=== PATIENT | female | born 1940 | race Caucasian/White ===

== ENCOUNTER 2017-08-02 09:59 | Emergency (ER) | payer MEDICARE ==
[~2017-08-02] VITALS: Ht 170.2 cm; Wt 95.3 kg
[2017-08-02 10:05] VITALS: BP_SYST 164
[2017-08-02] MEDS ORDERED: cloNIDine HCL 0.1 MG TABLET PO ONE (10:15)
[2017-08-02] MEDS ORDERED: DIPH-TET Vacc 0.5 ML VIAL I.M. ONE (10:15)
[2017-08-02 10:33] LABS: BASOPHILS % (AUTO) 0.4 % (0.0-2.0); EOSINOPHILS # (AUTO) 0.1 K/uL (0.0-0.4); EOSINOPHILS % (AUTO) 1.3 % (0.0-4.0); HEMATOCRIT 43.5 % (36-48); HEMOGLOBIN 14.2 g/dL (12.0-16.0); LYMPHOCYTES # (AUTO) 2.3 K/uL (1.0-5.5); LYMPHOCYTES % (AUTO) 33.8 % (20.5-51.5); MEAN CORPUSCULAR HEMOGLOBIN 31 pg (27-31); MEAN CORPUSCULAR HGB CONC 33 % (32-36); MEAN CORPUSCULAR VOLUME 93 fL (79.0-98.0); MONOCYTES # (AUTO) 0.4 K/uL (0.0-1.0); MONOCYTES % (AUTO) 6.7 % (1.7-9.3); NEUTROPHILS # (AUTO) 3.9 K/uL (1.8-7.7); NEUTROPHILS % (AUTO) 57.8 % (40.0-70.0); PLATELET COUNT (AUTO) 214 K/uL (130-430); RED BLOOD CELL COUNT(AUTO) 4.67 MIL/uL (4.2-6.2); RED CELL DISTRIBUTION WIDTH 12.1 % (9.0-15.0); WHITE BLOOD COUNT (AUTO) 6.7 K/uL (4.8-10.8)
[2017-08-02 10:44] LABS: ANION GAP 8 (5-15); CALCIUM 9.7 mg/dL (8.4-11.0); CHLORIDE 102 mmol/L (98-107); CREATININE 0.71 mg/dL (0.55-1.30); GLUCOSE 165 mg/dL (70-99); INR 1.1 (0.8-1.2); POTASSIUM 3.7 mmol/L (3.5-5.1); PROTHROMBIN TIME 10.7 SECS (9.5-12.5); SODIUM SERUM 138 mmol/L (136-145); UREA NITROGEN, BLOOD 15 mg/dL (8-21)
[2017-08-02 11:09] LABS: ALANINE AMINOTRANSFERASE 115 U/L (12-78); ALBUMIN 4.2 g/dL (3.4-4.8); ALCOHOL, BLOOD < 3 mg/dL (<10); ASPARTATE AMINOTRANSFERASE 104 U/L (10-37); FREE T4 (FREE THYROXINE) 0.7 ng/dL (0.6-1.6); TOTAL BILIRUBIN 1.1 mg/dL (0.0-1.0)
[2017-08-02 12:40] VITALS: BP_SYST 140
== END 2017-08-02 12:40 | disposition home or self-care (01) ==
LOC: SED 09:59
DX: S02.2XXA Fracture of nasal bones, initial encounter for closed fracture (principal); S01.511A Laceration without foreign body of lip, initial encounter; M25.552 Pain in left hip; Z88.0 Allergy status to penicillin; Z88.2 Allergy status to sulfonamides; Z88.5 Allergy status to narcotic agent; Z88.1 Allergy status to other antibiotic agents; W01.0XXA Fall on same level from slipping, tripping and stumbling without subsequent striking against object, initial encounter; Y93.89 Activity, other specified; Y92.89 Other specified places as the place of occurrence of the external cause; Y99.8 Other external cause status
CPT/HCPCS: 36415; 70450; 70486; 71010; 73502; 74000; 80053; 83880; 84439; 84484; 85025; 85610; 90471; 90714; 93005; 99285; G0482

== ENCOUNTER 2018-12-12 08:35 | Emergency (ER) | payer MEDICARE ==
[~2018-12-12] VITALS: Ht 162.6 cm; Wt 86.2 kg
[2018-12-12 08:35] VITALS: BP_SYST 145
[2018-12-12] MEDS ORDERED: LOSA50TA3 PO (09:14)
[2018-12-12] MEDS ORDERED: LIP10 PO (09:18)
[2018-12-12] MEDS ORDERED: PANT20TA2 PO (09:18)
[2018-12-12] MEDS ORDERED: DILT30TA36 PO (09:18)
[2018-12-12] MEDS ORDERED: DABI150C PO (09:18)
[2018-12-12 09:30] LABS: BASOPHILS % (AUTO) 0.4 % (0.0-2.0); EOSINOPHILS # (AUTO) 0.1 K/uL (0.0-0.4); EOSINOPHILS % (AUTO) 1.2 % (0.0-4.0); HEMATOCRIT 41.7 % (36-48); LYMPHOCYTES # (AUTO) 1.9 K/uL (1.0-5.5); LYMPHOCYTES % (AUTO) 32.3 % (20.5-51.5); MEAN CORPUSCULAR HEMOGLOBIN 32 pg (27-31); MEAN CORPUSCULAR HGB CONC 34 % (32-36); MEAN CORPUSCULAR VOLUME 94 fL (79.0-98.0); MONOCYTES # (AUTO) 0.4 K/uL (0.0-1.0); MONOCYTES % (AUTO) 7.3 % (1.7-9.3); NEUTROPHILS # (AUTO) 3.4 K/uL (1.8-7.7); NEUTROPHILS % (AUTO) 58.8 % (40.0-70.0); PLATELET COUNT (AUTO) 205 K/uL (130-430); RED BLOOD CELL COUNT(AUTO) 4.44 MIL/uL (4.2-6.2); RED CELL DISTRIBUTION WIDTH 13.2 % (9.0-15.0); WHITE BLOOD COUNT (AUTO) 5.7 K/uL (4.8-10.8)
[2018-12-12 09:34] LABS: ALANINE AMINOTRANSFERASE 88 U/L (12-78); ALBUMIN 3.6 g/dL (3.4-4.8); ANION GAP 6 (5-15); ASPARTATE AMINOTRANSFERASE 10 U/L (10-37); CALCIUM 9.3 mg/dL (8.4-11.0); CHLORIDE 95 mmol/L (98-107); CREATININE 0.52 mg/dL (0.55-1.30); GLUCOSE 148 mg/dL (70-99); POTASSIUM 3.7 mmol/L (3.5-5.1); SODIUM SERUM 129 mmol/L (136-145); TOTAL BILIRUBIN 0.9 mg/dL (0.0-1.0); UREA NITROGEN, BLOOD 12 mg/dL (8-21)
[2018-12-12 09:40] LABS: INR 1.2 (0.8-1.2); PROTHROMBIN TIME 12.1 SECS (9.5-12.5)
[2018-12-12 10:26] VITALS: BP_SYST 145
== END 2018-12-12 10:26 | disposition home or self-care (01) ==
LOC: SED 08:35
DX: R00.2 Palpitations (principal); I48.91 Unspecified atrial fibrillation; R07.89 Other chest pain; Z88.0 Allergy status to penicillin; Z88.2 Allergy status to sulfonamides; Z88.1 Allergy status to other antibiotic agents; Z88.5 Allergy status to narcotic agent; Z79.899 Other long term (current) drug therapy
CPT/HCPCS: 36415; 71045; 80053; 82550-TC; 83880; 84484; 85025; 85610-TC; 85730-TC; 99284

== ENCOUNTER 2023-03-29 00:05 | Inpatient (IN) | payer MEDICARE ==
[2023-03-29] VITALS (26 sets, daily range): BP systolic 103–164; PULSE 63–85; RESP 13–24; TEMP 97.4–98.2; O2SAT 93–100
[~2023-03-29] VITALS: Ht 167.6 cm; Wt 98.4 kg
[~2023-03-29 00:05] MED LIST: DABI150C PO; DILT30TA35 PO; LIP10 PO; LOSA50TA3 PO; PANT20TA2 PO
[2023-03-29] MEDS ORDERED: PANTOPRAZOLE SODIUM 40 MG/VIAL (PROTONIX) IVP ONE (01:00)
[2023-03-29] MEDS ORDERED: ONDANSETRON HCL 4 MG/2 ML VIAL IVP ONE (01:00)
[2023-03-29] MEDS ORDERED: NACL 0.9% 1,000 ML IV ONE ×2 (01:00→03:00)
[2023-03-29 01:24] LABS: BILIRUBIN,URINE NEGATIVE (NEGATIVE); BLOOD, URINE NEGATIVE (NEGATIVE); CLARITY/URINE CLEAR (CLEAR); COLOR,URINE YELLOW (YELLOW); GLUCOSE,URINE NEGATIVE (NEGATIVE); KETONES,URINE TRACE (NEGATIVE); LEUKOCYTE ESTERASE ,URINE 1+ (NEGATIVE); NITRITE, URINE NEGATIVE (NEGATIVE); PROTEIN URINE TRACE (NEGATIVE); UROBILINOGEN,URINE 0.2 (0.2-1.0)
[2023-03-29 01:27] LABS: BASOPHILS % (AUTO) 0.4 % (0.0-2.0); EOSINOPHILS % (AUTO) 0.4 % (0.0-4.0); HEMATOCRIT 25.6 % (36-48); HEMOGLOBIN 8.4 g/dL (12.0-16.0); LYMPHOCYTES # (AUTO) 2.4 K/uL (1.0-5.5); LYMPHOCYTES % (AUTO) 24.8 % (20.5-51.5); MEAN CORPUSCULAR HEMOGLOBIN 29 pg (27-31); MEAN CORPUSCULAR HGB CONC 33 % (32-36); MEAN CORPUSCULAR VOLUME 89 fL (79.0-98.0); MONOCYTES # (AUTO) 0.8 K/uL (0.0-1.0); MONOCYTES % (AUTO) 7.9 % (1.7-9.3); NEUTROPHILS # (AUTO) 6.6 K/uL (1.8-7.7); NEUTROPHILS % (AUTO) 66.5 % (40.0-70.0); PLATELET COUNT (AUTO) 197 K/uL (130-430); RED BLOOD CELL COUNT(AUTO) 2.89 MIL/uL (4.2-6.2); RED CELL DISTRIBUTION WIDTH 15.5 % (9.0-15.0); WHITE BLOOD COUNT (AUTO) 9.9 K/uL (4.8-10.8)
[2023-03-29 01:46] LABS: BACTERIA,URINE RARE /HPF (None Seen)
[2023-03-29 01:59] LABS: ANION GAP 12 (5-15); CALCIUM 8.9 mg/dL (8.4-11.0); CARBON DIOXIDE 21 mmol/L (23-29); CHLORIDE 104 mmol/L (98-107); CREATININE 1.18 mg/dL (0.55-1.30); GLUCOSE 178 mg/dL (74-106); POTASSIUM 4.4 mmol/L (3.5-5.1); SODIUM SERUM 137 mmol/L (136-145); UREA NITROGEN, BLOOD 43 mg/dL (8-21)
[2023-03-29 02:05] LABS: ALANINE AMINOTRANSFERASE 45 U/L (12-78); ASPARTATE AMINOTRANSFERASE 71 U/L (10-37); LIPASE 241 U/L (73-393); TOTAL BILIRUBIN 0.9 mg/dL (0.0-1.0); TOTAL PROTEIN, SERUM 6.7 g/dL (6.4-8.3)
[2023-03-29] MEDS ORDERED: SPIR25TA PO (02:30)
[2023-03-29] MEDS ORDERED: DABI150C PO (02:30)
[2023-03-29] MEDS ORDERED: AMIO200T66 PO (02:30)
[2023-03-29] MEDS ORDERED: OMEP20CA15 PO (02:30)
[2023-03-29] MEDS ORDERED: ONDANSETRON HCL 4 MG/2 ML VIAL IVP PRN ×2 (03:15→10:45)
[2023-03-29] MEDS: D5/0.45 NS 1,000 ML IV SCH ×3 (04:02→22:25)
[2023-03-29 07:12] LABS: INR 1.3 (0.8-1.2); PROTHROMBIN TIME 13.6 SECS (9.5-12.5)
[2023-03-29] MEDS ORDERED: PANTOPRAZOLE SODIUM 40 MG/VIAL (PROTONIX) IVP SCH (09:00)
[2023-03-29] MEDS ORDERED: LORazepam 2 MG/ML VIAL IVP PRN (10:45)
[2023-03-29] MEDS ORDERED: MIDAZOLAM HCL 5 MG/5 ML VIAL ONE (14:30)
[2023-03-29] MEDS ORDERED: SIMETHICONE 40 MG/0.6 ML ML ONE (14:30)
[2023-03-29] MEDS ORDERED: fentaNYL CITRATE/PF 100 MCG/2 ML AMP ONE (14:30)
[2023-03-29] MEDS: PANTOPRAZOLE SODIUM 40 MG in NS 50 ML IV SCH ×2 (16:03→20:18)
[2023-03-29 17:09] LABS: BILIRUBIN,URINE NEGATIVE (NEGATIVE); BLOOD, URINE NEGATIVE (NEGATIVE); CLARITY/URINE CLEAR (CLEAR); COLOR,URINE YELLOW (YELLOW); GLUCOSE,URINE NEGATIVE (NEGATIVE); KETONES,URINE NEGATIVE (NEGATIVE); LEUKOCYTE ESTERASE ,URINE 1+ (NEGATIVE); NITRITE, URINE NEGATIVE (NEGATIVE); PROTEIN URINE NEGATIVE (NEGATIVE); UROBILINOGEN,URINE 0.2 (0.2-1.0)
[2023-03-29 17:25] LABS: BACTERIA,URINE FEW /HPF (None Seen); MUCUS,URINE None Seen /LPF (None Seen); RBC,URINE 0-3 /HPF (0-3)
[2023-03-29] MEDS: OCTREOTIDE ACETATE 1,250 MCG in NS 250 ML IV SCH (18:20)
[2023-03-30] VITALS (15 sets, daily range): BP systolic 92–137; PULSE 61–75; RESP 12–18; TEMP 97.7–98.9; O2SAT 92–100
[2023-03-30] MEDS: PANTOPRAZOLE SODIUM 40 MG in NS 50 ML IV SCH ×5 (02:38→22:00)
[2023-03-30 05:13] LABS: ALANINE AMINOTRANSFERASE 89 U/L (12-78); ALBUMIN 2.7 g/dL (3.4-4.8); ANION GAP 6 (5-15); ASPARTATE AMINOTRANSFERASE 159 U/L (10-37); CALCIUM 7.9 mg/dL (8.4-11.0); CARBON DIOXIDE 26 mmol/L (23-29); CHLORIDE 104 mmol/L (98-107); CREATININE 0.78 mg/dL (0.55-1.30); GLUCOSE 125 mg/dL (74-106); POTASSIUM 4.3 mmol/L (3.5-5.1); SODIUM SERUM 136 mmol/L (136-145); TOTAL BILIRUBIN 1.2 mg/dL (0.0-1.0); TOTAL PROTEIN, SERUM 6.1 g/dL (6.4-8.3); UREA NITROGEN, BLOOD 16 mg/dL (8-21)
[2023-03-30 05:21] LABS: TOTAL IRON BIND. CAPACITY 283 ug/dL (250-450)
[2023-03-30 05:26] LABS: BASOPHILS % (AUTO) 0.5 % (0.0-2.0); EOSINOPHILS # (AUTO) 0.1 K/uL (0.0-0.4); EOSINOPHILS % (AUTO) 1.3 % (0.0-4.0); LYMPHOCYTES % (AUTO) 35.1 % (20.5-51.5); MEAN CORPUSCULAR HEMOGLOBIN 29 pg (27-31); MEAN CORPUSCULAR HGB CONC 32 % (32-36); MEAN CORPUSCULAR VOLUME 90 fL (79.0-98.0); MONOCYTES # (AUTO) 0.7 K/uL (0.0-1.0); MONOCYTES % (AUTO) 8.8 % (1.7-9.3); NEUTROPHILS # (AUTO) 4.6 K/uL (1.8-7.7); NEUTROPHILS % (AUTO) 54.3 % (40.0-70.0); PLATELET COUNT (AUTO) 149 K/uL (130-430); WHITE BLOOD COUNT (AUTO) 8.4 K/uL (4.8-10.8)
[2023-03-30 05:34] LABS: HEMATOCRIT 21.6 % (36-48)
[2023-03-30] MEDS ORDERED: MORPHINE 2 MG/ML INJ. SYRINGE IVP PRN (07:00)
[2023-03-30] MEDS: D5/0.45 NS 1,000 ML IV SCH ×2 (08:11→20:48)
[2023-03-30] MEDS: ACETAMINOPHEN 500 MG TABLET PO PRN ×2 (10:42→18:49)
[2023-03-30] MEDS: OCTREOTIDE ACETATE 1,250 MCG in NS 250 ML IV SCH (20:48)
[2023-03-30] MEDS: CIPROFLOXACIN LACT 200 MG/D5W 100 ML IV SCH (22:19)
[2023-03-31 00:10] VITALS: BP_SYST 116; PULSE 65; RESP 20; TEMP 97.7; O2SAT 95
[2023-03-31 01:42] VITALS: O2SAT 97
[2023-03-31] MEDS: PANTOPRAZOLE SODIUM 40 MG in NS 50 ML IV SCH ×2 (01:56→06:58)
[2023-03-31 05:51] LABS: BASOPHILS % (AUTO) 0.6 % (0.0-2.0); EOSINOPHILS # (AUTO) 0.1 K/uL (0.0-0.4); EOSINOPHILS % (AUTO) 1.5 % (0.0-4.0); HEMATOCRIT 24.2 % (36-48); LYMPHOCYTES # (AUTO) 1.8 K/uL (1.0-5.5); LYMPHOCYTES % (AUTO) 23.7 % (20.5-51.5); MEAN CORPUSCULAR HEMOGLOBIN 30 pg (27-31); MEAN CORPUSCULAR HGB CONC 33 % (32-36); MEAN CORPUSCULAR VOLUME 91 fL (79.0-98.0); MONOCYTES # (AUTO) 0.7 K/uL (0.0-1.0); MONOCYTES % (AUTO) 9.5 % (1.7-9.3); NEUTROPHILS # (AUTO) 4.8 K/uL (1.8-7.7); NEUTROPHILS % (AUTO) 64.7 % (40.0-70.0); PLATELET COUNT (AUTO) 121 K/uL (130-430); RED BLOOD CELL COUNT(AUTO) 2.67 MIL/uL (4.2-6.2); RED CELL DISTRIBUTION WIDTH 15.3 % (9.0-15.0); WHITE BLOOD COUNT (AUTO) 7.4 K/uL (4.8-10.8)
[2023-03-31 06:05] LABS: ERYTHROCYTE SEDIMENTATION RATE 12 MM/HR (0-20)
[2023-03-31 06:17] LABS: ALANINE AMINOTRANSFERASE 101 U/L (12-78); ALBUMIN 2.6 g/dL (3.4-4.8); ANION GAP 8 (5-15); ASPARTATE AMINOTRANSFERASE 133 U/L (10-37); CALCIUM 7.6 mg/dL (8.4-11.0); CARBON DIOXIDE 25 mmol/L (23-29); CHLORIDE 104 mmol/L (98-107); CREATININE 0.75 mg/dL (0.55-1.30); GLUCOSE 165 mg/dL (74-106); SODIUM SERUM 137 mmol/L (136-145); TOTAL BILIRUBIN 1.6 mg/dL (0.0-1.0); TOTAL PROTEIN, SERUM 5.8 g/dL (6.4-8.3); UREA NITROGEN, BLOOD 9 mg/dL (8-21)
[2023-03-31] MEDS: D5/0.45 NS 1,000 ML IV SCH (06:58)
[2023-03-31 08:00] VITALS: BP_SYST 129; PULSE 68; RESP 16; TEMP 98.5; O2SAT 93; O2SAT 96
[2023-03-31 08:11] LABS: ALPHA-1-ANTITRYPSIN, S 125 mg/dL (101-187); FERRITIN 44 ng/mL (15-150)
[2023-03-31] MEDS: CIPROFLOXACIN LACT 200 MG/D5W 100 ML IV SCH (09:31)
[2023-03-31 12:00] VITALS: BP_SYST 127; PULSE 69; RESP 18; TEMP 98.1; TEMP 98.4; O2SAT 93; O2SAT 98
[2023-03-31 12:12] LABS: AFP, TUMOR MARKER 2.9 ng/mL (0.0-9.2)
[2023-03-31] MEDS ORDERED: PROPRANOLOL HCL 10 MG TABLET (INDERAL) PO SCH (14:00)
[2023-03-31] MEDS ORDERED: NORMAL SALINE 5 ML DISP.SYRIN IVF SCH (14:00)
[2023-03-31 16:00] VITALS: BP_SYST 113; PULSE 54; RESP 20; TEMP 98.2; O2SAT 99
[2023-03-31] MEDS: ACETAMINOPHEN 500 MG TABLET PO PRN (16:22)
[2023-03-31 17:15] VITALS: BP_SYST 113; PULSE 54; RESP 20; TEMP 98.2; O2SAT 99
[2023-03-31] MEDS ORDERED: PROP10TA10 PO (17:15)
[2023-03-31] MEDS ORDERED: PRO40 PO (17:15)
[2023-03-31] MEDS ORDERED: CIPR250T4 PO (17:15)
[2023-03-31] MEDS ORDERED: PANTOPRAZOLE SODIUM 40 MG TAB PO SCH (21:00)
[2023-04-01 08:11] LABS: HEPATITIS C VIRUS AB Non Reactive (Non Reactive)
[2023-04-01 12:07] LABS: HEPATITIS A AB, IgM Negative (Negative); HEPATITIS B CORE AB, IgM Negative (Negative); HEPATITIS B SURFACE AG Negative (Negative)
[2023-04-02 11:07] LABS: ANTI-SMOOTH MUSCLE AB 5 Units (0-19)
== END 2023-03-31 18:30 | disposition short-term general hospital (02) | DRG 432 ==
LOC: SED 00:05 → SIC 02:32 → SMU 03-30 13:29 → STU 03-30 14:04
PROVIDERS: ADMIT Preventive Medicine Preventive Medicine/Occupational Environmental Medicine; ATTEND Preventive Medicine Preventive Medicine/Occupational Environmental Medicine
PROC: 06L38CZ Occlusion of Esophageal Vein with Extraluminal Device, Via Natural or Artificial Opening Endoscopic (ICD-10-PCS; 2023-03-29)
PROC: 0DB68ZX Excision of Stomach, Via Natural or Artificial Opening Endoscopic, Diagnostic (ICD-10-PCS; principal; 2023-03-29 09:45)
PROC: 0DB78ZX Excision of Stomach, Pylorus, Via Natural or Artificial Opening Endoscopic, Diagnostic (ICD-10-PCS; 2023-03-29 09:45)
PROC: 30233N1 Transfusion of Nonautologous Red Blood Cells into Peripheral Vein, Percutaneous Approach (ICD-10-PCS; 2023-03-30)
DX: K74.60 Unspecified cirrhosis of liver (principal); E43 Unspecified severe protein-calorie malnutrition; I85.11 Secondary esophageal varices with bleeding; N39.0 Urinary tract infection, site not specified; I50.9 Heart failure, unspecified; B96.89 Other specified bacterial agents as the cause of diseases classified elsewhere; R73.9 Hyperglycemia, unspecified; E83.51 Hypocalcemia; K31.89 Other diseases of stomach and duodenum; Z20.822 Contact with and (suspected) exposure to COVID-19; E66.9 Obesity, unspecified; I25.10 Atherosclerotic heart disease of native coronary artery without angina pectoris; I48.91 Unspecified atrial fibrillation; I11.0 Hypertensive heart disease with heart failure; D50.0 Iron deficiency anemia secondary to blood loss (chronic); E78.5 Hyperlipidemia, unspecified; K75.81 Nonalcoholic steatohepatitis (NASH); K31.7 Polyp of stomach and duodenum; Z79.01 Long term (current) use of anticoagulants; Z68.35 Body mass index [BMI] 35.0-35.9, adult; Z88.0 Allergy status to penicillin; Z88.6 Allergy status to analgesic agent; Z88.1 Allergy status to other antibiotic agents; Z88.2 Allergy status to sulfonamides; Z79.899 Other long term (current) drug therapy
CPT/HCPCS: 36415; 43239; 43244; 71045; 76376; 76700-TC; 80053; 80074; 81000; 82103; 82105; 82390; 82728; 83516; 83540; 83550; 83690; 83880; 84484; 85025; 85610-TC; 85651-TC; 85730-TC; 86038; 86886; 86900; 86901; 86920; 87081; 87086; 93005; 96361; 96374; 96375; 96376; 97116-GP; 97163-GP; 99285; C9113; G0378; J0744; J2250; J2405; J3010; J7030; J7040; J7050; P9021